=== PATIENT | male | born 1980 | race Caucasian/White ===

== ENCOUNTER 2017-10-31 16:45 | Emergency (ER) | payer BC ==
[2017-10-31 16:57] VITALS: BP 171/110
[2017-10-31] MEDS ORDERED: methylPREDNISolone Sodium Succinate 125 MG/2 ML SDV IM ONE (17:33)
[2017-10-31] MEDS ORDERED: Acetaminophen/oxyCODONE 325-5 MG Tab PO ONE (17:33)
[2017-10-31] MEDS ORDERED: Ketorolac 60 MG/2 ML SDV IM ONE (17:33)
[2017-10-31] MEDS ORDERED: Cyclobenzaprine 10 MG Tab PO ONE (17:34)
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
== END 2017-10-31 18:55 | disposition home or self-care (01) ==
LOC: JD.ED 16:45
DX: M54.42 Lumbago with sciatica, left side (principal); F17.210 Nicotine dependence, cigarettes, uncomplicated; I10 Essential (primary) hypertension; F41.9 Anxiety disorder, unspecified; Z79.899 Other long term (current) drug therapy
CPT/HCPCS: 96372; 99283; A9270; J1885; J2930; 99282

== ENCOUNTER 2018-07-14 19:50 | Emergency (ER) | payer BC ==
[2018-07-14 20:18] VITALS: BP 158/104
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
--- NOTE | 2018-07-17 08:46 | CR ---
Lumbar spine: AP, lateral and cone-down lateral views centered to the lumbosacral junction were obtained. Comparison: No previous study. Mild disc space narrowing is seen posteriorly at L5-S1. Minimal anterior wedging is noted at T12 and T11. Mild scattered endplate osteophytes are seen. Pedicles as well as transverse and spinous processes are intact. Sacroiliac joints are within normal limits. Impression: 1. Mild degenerative change as noted above. 2. Minimal anterior wedging of T11 and T12. This may be developmental although MRI would be helpful to exclude acute compression deformity if the patient has correlating symptoms. Diagnostic code #3
== END 2018-07-14 21:40 | disposition home or self-care (01) ==
LOC: JD.ED 19:50
DX: S39.012A Strain of muscle, fascia and tendon of lower back, initial encounter (principal); I10 Essential (primary) hypertension; F17.210 Nicotine dependence, cigarettes, uncomplicated; Z79.899 Other long term (current) drug therapy; V57.5XXA Driver of pick-up truck or van injured in collision with fixed or stationary object in traffic accident, initial encounter
CPT/HCPCS: 72100; 72100-26; 99284

== ENCOUNTER 2018-11-19 03:41 | Emergency (ER) | payer BC ==
[2018-11-19 03:51] VITALS: BP 202/112
[2018-11-19] MEDS ORDERED: cefTRIAXone 1 GM, Lidocaine 1% 2.1 ML IM SCH ×2 (04:15)
--- NOTE | 2018-11-19 04:20 | EDM.PDOC ---
ED HPI GENERAL MEDICAL PROBLEM - General Chief Complaint: ENT Problem Stated Complaint: ABCESSED TOOTH Time Seen by Provider: 11/19/18 04:02 Source of Information: Reports: Patient History Limitations: Reports: No Limitations - History of Present Illness INITIAL COMMENTS - FREE TEXT/NARRATIVE: This is a 38-year-old male. He has a history of very bad teeth. He seen his dentist multiple times for repair of the teeth but they continued to disintegrate. Over the last couple days he's been having on and off irritation of tooth #15 in the left upper jaw and tonight he woke up feeling like he was hurting he brushed his teeth and swish some whiskey and the tooth began to bleed and he feels like his face is more swollen. He comes to the ER for evaluation. He receives pain management by a [facility] part of [facility] pain management. He states he's been to see his dentist this week for repair or removal of the tooth. Left Tooth/Teeth Pain Score (Numeric/FACES): 10 - Related Data Allergies Allergy/AdvReac Type Severity Reaction Status Date / Time No Known Allergies Allergy Verified 11/19/18 03:51 Home Meds: Home Meds DULoxetine [Cymbalta] 60 mg PO DAILY 05/05/18 [History] Gabapentin [Neurontin] 300 - 900 mg PO DAILY 11/19/18 [History] Penicillin V Potassium 500 mg PO Q8HR 30 Days #30 tab 11/19/18 [Rx] oxyCODONE ER [OxyCONTIN] 10 mg PO DAILY PRN 11/19/18 [History] tiZANidine HCl [Tizanidine HCl] 10 mg PO DAILY 11/19/18 [History] Past Medical History Cardiovascular History: Reports: Hypertension Other Cardiovascular History: not on medication Musculoskeletal History: Reports: Back Pain, Chronic, Fracture Psychiatric History: Reports: Anxiety Social & Family History - Family History Family Medical History: Noncontributory - Tobacco Use Smoking Status *Q: Current Every Day Smoker Years of Tobacco use: 20 Packs/Tins Daily: 1 - Caffeine Use Caffeine Use: Reports: Soda - Recreational Drug Use Recreational Drug Use: No ED ROS ENT - Review of Systems Review Of Systems: See Below Constitutional: Denies: Fever, Chills HEENT: Reports: Other (As per history of present illness) Respiratory: Reports: No Symptoms Cardiovascular: Reports: No Symptoms Endocrine: Reports: No Symptoms GI/Abdominal: Reports: No Symptoms Musculoskeletal: Reports: Back Pain Skin: Reports: No Symptoms Psychiatric: Reports: No Symptoms Hematologic/Lymphatic: Reports: No Symptoms ED EXAM, ENT - Physical Exam Exam: See Below Exam Limited By: No Limitations General Appearance: Alert, WD/WN, No Apparent Distress Eye Exam: Bilateral Eye: Normal Inspection Ears: Normal External Exam Nose: Normal Inspection Mouth/Throat: Normal Lips, Normal Oropharynx, Other (Teeth are in poor repair. In the left upper jaw tooth #15 there is a amalgam but only part of the tooth that looks like it is disintegrated, I do not see any active bleeding or drainage at this time) Head: Normocephalic Neck: Supple Respiratory/Chest: No Respiratory Distress Extremities: Normal Inspection, Normal Range of Motion Neurological: Alert, Oriented Psychiatric: Normal Affect, Normal Mood Skin: Warm, Dry Course - Vital Signs Last Recorded V/S: Last Vital Signs Temp 96.7 F 11/19/18 03:49 Pulse 89 11/19/18 03:49 Resp 16 11/19/18 03:49 BP 202/112 H 11/19/18 03:49 Pulse Ox 98 11/19/18 03:49 - Orders/Labs/Meds Orders: Active Orders 24 hr Category Date Time Status cefTRIAXone [Rocephin] 1 gm Med 11/19/18 04:15 Active Lidocaine 1% [Xylocaine 1%] 2.1 ml IM Q24H Medication Orders Ceftriaxone Sodium 1 gm/ (Lidocaine HCl 2.1 ml) 0 gm IM Q24H [facility] Meds: Medications Generic Name Dose Route Start Last Admin Trade Name Haja PRN Reason Stop Dose Admin Ceftriaxone Sodium 1 gm/ 0 gm 11/19/18 04:15 Lidocaine HCl 2.1 ml IM Q24H [facility] Departure - Departure Time of Disposition: 04:17 Disposition: Home, Self-Care 01 Condition: Good Clinical Impression: Dental infection, Dental caries, Pain, dental - Discharge Information *PRESCRIPTION DRUG MONITORING PROGRAM REVIEWED*: Not Applicable *COPY OF PRESCRIPTION DRUG MONITORING REPORT IN PATIENT [place]: Not Applicable Prescriptions: Penicillin V Potassium 500 mg PO Q8HR 30 Days #30 tab Instructions: Dental Abscess Referrals: Dixon Whitmore Jr, MD [Primary Care Provider] - Additional Instructions: When the pharmacy opens up tomorrow and get the antibiotics and start taking them faithfully, call your dentist to get an appointment for repair or extraction of the tooth, continue with your oxycodone at home from pain management, you may use some Tylenol or ibuprofen as needed for pain and soreness, return to the ER if needed - My Orders Last 24 Hours: My Active Orders 11/19/18 04:15 cefTRIAXone [Rocephin] 1 gm Lidocaine 1% [Xylocaine 1%] 2.1 ml IM Q24H - Assessment/Plan Last 24 Hours: My Active Orders 11/19/18 04:15 cefTRIAXone [Rocephin] 1 gm Lidocaine 1% [Xylocaine 1%] 2.1 ml IM Q24H
== END 2018-11-19 04:29 | disposition home or self-care (01) ==
LOC: JD.ED 03:41
DX: K02.9 Dental caries, unspecified (principal); I10 Essential (primary) hypertension; F41.9 Anxiety disorder, unspecified; F17.210 Nicotine dependence, cigarettes, uncomplicated; Z79.899 Other long term (current) drug therapy
CPT/HCPCS: 96372; 99282; J0696; J2001; 99283

== ENCOUNTER 2020-07-03 18:55 | Emergency (ER) | payer BC, MEDICAID ==
[2020-07-03] MEDS ORDERED: Sodium Chloride 0.9% 1,000 ML IV ONE (19:15)
[2020-07-03] MEDS ORDERED: Sodium Chloride 0.9% 10 ML Syringe FLUSH PRN ×2 (19:15→20:23)
[2020-07-03] MEDS ORDERED: Ketorolac 30 MG/ML SDV IVPUSH ONE (19:19)
--- NOTE | 2020-07-03 19:37 | EDM.PDOC ---
ED HPI GENERAL MEDICAL PROBLEM - General Chief Complaint: Fever Stated Complaint: [facility] Time Seen by Provider: 07/03/20 19:20 Source of Information: Reports: Patient History Limitations: Reports: No Limitations - History of Present Illness INITIAL COMMENTS - FREE TEXT/NARRATIVE: Patient is a 40-year-old male presenting to the emergency department via [facility] with complaints of fever and cough. Ambulance crew said they were initially called out for a stroke, however patient's neurologic exam is normal, however he is intermittently confused. EMS reports a temperature of 105 upon their arrival. Temperature in triage which is 103.3. Patient does answer questions somewhat appropriately, however answers them in a roundabout fashion. He denies any chronic heart or lung conditions. States he has some right lower quadrant abdominal cramping occasionally but is not overly painful. States has been feeling ill for about 2 days and describes fever, but denies cough. He denies any nausea or vomiting. Patient states that his father called the ambulance. On triage, patient's temperature was 103.3 temporal, pulse 116, respiratory rate 20, blood pressure 149/87, with a pulse ox of 97% on room air. Abdominal Pain Score (Numeric/FACES): 4 - Related Data Allergies Allergy/AdvReac Type Severity Reaction Status Date / Time No Known Allergies Allergy Verified 07/03/20 19:15 Home Meds: Home Meds DULoxetine [Cymbalta] 60 mg PO DAILY 05/05/18 [History] Gabapentin [Neurontin] 300 - 900 mg PO DAILY 11/19/18 [History] Penicillin V Potassium 500 mg PO Q8HR 30 Days #30 tab 11/19/18 [Rx] oxyCODONE ER [OxyCONTIN] 10 mg PO DAILY PRN 11/19/18 [History] tiZANidine HCl [Tizanidine HCl] 10 mg PO DAILY 11/19/18 [History] Doxycycline [Vibra-Tabs] 100 mg PO Q12HR #20 tab 07/04/20 [Rx] Past Medical History Cardiovascular History: Reports: Hypertension Other Cardiovascular History: not on medication Musculoskeletal History: Reports: Back Pain, Chronic, Fracture Psychiatric History: Reports: Anxiety Social & Family History - Family History Family Medical History: Noncontributory - Caffeine Use Caffeine Use: Reports: Soda ED ROS GENERAL - Review of Systems Review Of Systems: See Below Constitutional: Reports: Fever, Chills, Weakness HEENT: Reports: No Symptoms Respiratory: Reports: Shortness of Breath, Cough Cardiovascular: Reports: No Symptoms. Denies: Chest Pain, Syncope Endocrine: Reports: No Symptoms GI/Abdominal: Reports: Abdominal Pain (Right lower abdomen). Denies: Nausea, Vomiting : Reports: No Symptoms. Denies: Flank Pain Musculoskeletal: Reports: No Symptoms Skin: Reports: No Symptoms Neurological: Reports: Confusion (Intermittent). Denies: Headache Psychiatric: Reports: Confusion (Intermittent) Hematologic/Lymphatic: Reports: No Symptoms Immunologic: Reports: No Symptoms ED EXAM, SEPSIS - Physical Exam Exam: See Below General Appearance: Alert, Lethargic Eye Exam: Bilateral Eye: PERRL, Other ([place] bilaterally) Head: Atraumatic, Normocephalic Respiratory/Chest: No Respiratory Distress, Lungs Clear, Normal Breath Sounds, No Accessory Muscle Use, Chest Non-Tender Cardiovascular: Normal Peripheral Pulses, Regular Rate, Rhythm, No Edema, No Gallop, No JVD, No Murmur, No Rub GI/Abdominal Exam: Normal Bowel Sounds, Soft, No Organomegaly, No Distention, No Abnormal Bruit, No Mass, Pelvis Stable, Tender (Right lower and right lateral quadrant tenderness.). No: Guarding, Rigid, Rebound Extremities: Normal Inspection, Normal Range of Motion, Non-Tender, No Pedal Edema, Normal Capillary Refill Neurological: Alert, Oriented, No Motor/Sensory Deficits, Other (Answers questions in a roundabout matter. Takes him a while to think of the answer to the questions. He is oriented to person place and date.) Psychiatric: Normal Affect, Normal Mood Skin: Warm, Dry, Intact, Normal Color, No Rash EKG INTERPRETATION EKG Date: 07/04/20 Time: 21:10 Rhythm: NSR Rate (Beats/Min): 100 [place]: Normal P-Wave: Present QRS: Normal ST-T: Normal QT: Prolonged (Mildly) EKG Interpretation Comments: Sinus tachycardia at 100 bpm With V1 and V2 old anterior septal MO Early R wave transition consider septal hypertrophy Consider left atrial hypertrophy QTC mildly prolonged EKG interpreted by Dr. Saray RENTERIA. Course - Vital Signs Last Recorded V/S: Last Vital Signs Temp 100.5 F 07/03/20 23:56 Pulse 89 07/04/20 00:40 Resp 16 07/04/20 00:40 BP 126/79 07/04/20 00:40 Pulse Ox 100 07/04/20 00:40 - Orders/Labs/Meds Orders: Active Orders 24 hr Category Date Time Status Cardiac Monitoring [RC] CONTINUOUS Care 07/03/20 19:17 Active EKG Documentation Completion [RC] ASDIRECTED Care 07/03/20 19:17 Active Venous Doppler Lwr Ext Bi [US] Stat Exams 07/03/20 22:27 Ordered CULTURE BLOOD [BC] Stat Lab 07/03/20 19:45 Received CULTURE BLOOD [BC] Stat Lab 07/03/20 19:55 Received DRUG SCREEN, URINE [URCHEM] Stat Lab 07/03/20 19:22 Ordered UA W/JAIMEE RFLX IF INDICATED [URIN] Stat Lab 07/03/20 19:15 Ordered Sodium Chloride 0.9% [Normal Saline] 1,000 ml Med 07/03/20 21:52 Active IV NOW Sodium Chloride 0.9% [Saline Flush] Med 07/03/20 19:15 Active 10 ml FLUSH ASDIRECTED PRN Sodium Chloride 0.9% [Saline Flush] Med 07/03/20 20:23 Active 10 ml FLUSH ONETIME PRN cefTRIAXone [Rocephin] 2 gm Med 07/03/20 21:45 Active Sodium Chloride 0.9% [Normal Saline] 100 ml IV Q24H Blood Culture x2 Reflex Set [OM.PC] Stat Oth 07/03/20 19:15 Ordered Pulse Oximetry Continuous Monitoring [OM.PC] Routine Oth 07/03/20 19:15 Active Saline Lock Insert [OM.PC] Stat Oth 07/03/20 19:15 Ordered EKG 12 Lead [EK] Stat Ther 07/03/20 19:15 Ordered Medication Orders Ceftriaxone Sodium 2 gm/ (Sodium Chloride) 100 mls @ 200 mls/hr IV Q24H DAT Last Admin: 07/03/20 22:05 Dose: 200 mls/hr Documented by: TALISHAIMAIdania Sodium Chloride (Normal Saline) 1,000 mls @ 150 mls/hr IV NOW STA Stop: 07/04/20 04:31 Last Admin: 07/03/20 22:04 Dose: 150 mls/hr Documented by: TALISHAIMAR Sodium Chloride (Saline Flush) 10 ml FLUSH ASDIRECTED PRN PRN Reason: Keep Vein Open Last Admin: 07/03/20 19:31 Dose: 10 ml Documented by: CIPRIANO Sodium Chloride (Saline Flush) 10 ml FLUSH ONETIME PRN PRN Reason: Keep Vein Open Last Admin: 07/03/20 20:42 Dose: 10 ml Documented by: BERE Labs: Laboratory Tests 07/03/20 07/03/20 07/03/20 Range/Units 19:45 19:45 19:45 WBC 19.64 H (4.23-9.07) K/mm3 RBC 5.21 (4.63-6.08) M/mm3 Hgb 15.6 (13.7-17.5) gm/dl Hct 45.1 (40.1-51.0) % MCV 86.6 (79.0-92.2) fl MCH 29.9 (25.7-32.2) pg MCHC 34.6 (32.2-35.5) g/dl RDW Std Deviation 39.6 (35.1-43.9) fL Plt Count 136 L (163-337) K/mm3 MPV 10.8 (9.4-12.3) fl Neutrophils % (Manual) 87 H (40-60) % Band Neutrophils % 4 (0-10) % Lymphocytes % (Manual) 4 L (20-40) % Atypical Lymphs % 0 % Monocytes % (Manual) 5 (2-10) % Eosinophils % (Manual) 0 L (0.8-7.0) % Basophils % (Manual) 0 L (0.2-1.2) Platelet Estimate Decreased Plt Morphology Comment See note RBC Morph Comment Normal PT (9.7-11.7) SECONDS INR D-Dimer, Quantitative (0.19-0.50) mg/L Sodium 132 L (136-145) mEq/L Potassium 3.0 L (3.5-5.1) mEq/L Chloride 96 L (98-107) mEq/L Carbon Dioxide 24 (21-32) mEq/L Anion Gap 15.0 (5-15) BUN 16 (7-18) mg/dL Creatinine 1.5 H (0.7-1.3) mg/dL Est Cr Clr Drug Dosing 69.03 mL/min Estimated GFR (MDRD) 52 (>60) mL/min BUN/Creatinine Ratio 10.7 L (14-18) Glucose 151 H (74-106) mg/dL Lactic Acid 1.0 (0.4-2.0) mmol/L Calcium 8.4 L (8.5-10.1) mg/dL Ferritin (26-388) ng/ml Total Bilirubin 1.0 (0.2-1.0) mg/dL AST 20 (15-37) U/L ALT 26 (16-63) U/L Alkaline Phosphatase 62 (46-116) U/L Lactate Dehydrogenase (85-227) U/L Troponin I < 0.017 (0.00-0.056) ng/mL C-Reactive Protein 34.0 H* (<1.0) mg/dL Total Protein 7.3 (6.4-8.2) g/dl Albumin 3.3 L (3.4-5.0) g/dl Globulin 4.0 gm/dL Albumin/Globulin Ratio 0.8 L (1-2) Lipase 37 L (73-393) U/L SARS-CoV-2 RNA (CRYS) (NEGATIVE) 07/03/20 07/03/20 07/03/20 Range/Units 19:45 19:45 19:45 WBC (4.23-9.07) K/mm3 RBC (4.63-6.08) M/mm3 Hgb (13.7-17.5) gm/dl Hct (40.1-51.0) % MCV (79.0-92.2) fl MCH (25.7-32.2) pg MCHC (32.2-35.5) g/dl RDW Std Deviation (35.1-43.9) fL Plt Count (163-337) K/mm3 MPV (9.4-12.3) fl Neutrophils % (Manual) (40-60) % Band Neutrophils % (0-10) % Lymphocytes % (Manual) (20-40) % Atypical Lymphs % % Monocytes % (Manual) (2-10) % Eosinophils % (Manual) (0.8-7.0) % Basophils % (Manual) (0.2-1.2) Platelet Estimate Plt Morphology Comment RBC Morph Comment PT 12.4 H (9.7-11.7) SECONDS INR 1.16 D-Dimer, Quantitative 2.16 H (0.19-0.50) mg/L Sodium (136-145) mEq/L Potassium (3.5-5.1) mEq/L Chloride (98-107) mEq/L Carbon Dioxide (21-32) mEq/L Anion Gap (5-15) BUN (7-18) mg/dL Creatinine (0.7-1.3) mg/dL Est Cr Clr Drug Dosing mL/min Estimated GFR (MDRD) (>60) mL/min BUN/Creatinine Ratio (14-18) Glucose (74-106) mg/dL Lactic Acid (0.4-2.0) mmol/L Calcium (8.5-10.1) mg/dL Ferritin 891 H (26-388) ng/ml Total Bilirubin (0.2-1.0) mg/dL AST (15-37) U/L ALT (16-63) U/L Alkaline Phosphatase (46-116) U/L Lactate Dehydrogenase 216 (85-227) U/L Troponin I (0.00-0.056) ng/mL C-Reactive Protein (<1.0) mg/dL Total Protein (6.4-8.2) g/dl Albumin (3.4-5.0) g/dl Globulin gm/dL Albumin/Globulin Ratio (1-2) Lipase (73-393) U/L SARS-CoV-2 RNA (CRYS) (NEGATIVE) 07/03/20 Range/Units 19:58 WBC (4.23-9.07) K/mm3 RBC (4.63-6.08) M/mm3 Hgb (13.7-17.5) gm/dl Hct (40.1-51.0) % MCV (79.0-92.2) fl MCH (25.7-32.2) pg MCHC (32.2-35.5) g/dl RDW Std Deviation (35.1-43.9) fL Plt Count (163-337) K/mm3 MPV (9.4-12.3) fl Neutrophils % (Manual) (40-60) % Band Neutrophils % (0-10) % Lymphocytes % (Manual) (20-40) % Atypical Lymphs % % Monocytes % (Manual) (2-10) % Eosinophils % (Manual) (0.8-7.0) % Basophils % (Manual) (0.2-1.2) Platelet Estimate Plt Morphology Comment RBC Morph Comment PT (9.7-11.7) SECONDS INR D-Dimer, Quantitative (0.19-0.50) mg/L Sodium (136-145) mEq/L Potassium (3.5-5.1) mEq/L Chloride (98-107) mEq/L Carbon Dioxide (21-32) mEq/L Anion Gap (5-15) BUN (7-18) mg/dL Creatinine (0.7-1.3) mg/dL Est Cr Clr Drug Dosing mL/min Estimated GFR (MDRD) (>60) mL/min BUN/Creatinine Ratio (14-18) Glucose (74-106) mg/dL Lactic Acid (0.4-2.0) mmol/L Calcium (8.5-10.1) mg/dL Ferritin (26-388) ng/ml Total Bilirubin (0.2-1.0) mg/dL AST (15-37) U/L ALT (16-63) U/L Alkaline Phosphatase (46-116) U/L Lactate Dehydrogenase (85-227) U/L Troponin I (0.00-0.056) ng/mL C-Reactive Protein (<1.0) mg/dL Total Protein (6.4-8.2) g/dl Albumin (3.4-5.0) g/dl Globulin gm/dL Albumin/Globulin Ratio (1-2) Lipase (73-393) U/L SARS-CoV-2 RNA (CRYS) Negative (NEGATIVE) Meds: Medications Generic Name Dose Route Start Last Admin Trade Name Freq PRN Reason Stop Dose Admin Ceftriaxone Sodium 2 gm/ 100 mls @ 200 mls/hr 07/03/20 21:45 07/03/20 22:05 Sodium Chloride IV 200 mls/hr Q24H DAT Administration Sodium Chloride 1,000 mls @ 150 mls/hr 07/03/20 21:52 07/03/20 22:04 Normal Saline IV 07/04/20 04:31 150 mls/hr NOW STA Administration Sodium Chloride 10 ml 07/03/20 19:15 07/03/20 19:31 Saline Flush FLUSH 10 ml ASDIRECTED PRN Administration Keep Vein Open Sodium Chloride 10 ml 07/03/20 20:23 07/03/20 20:42 Saline Flush FLUSH 10 ml ONETIME PRN Administration Keep Vein Open Discontinued Medications Generic Name Dose Route Start Last Admin Trade Name Haja PRN Reason Stop Dose Admin Acetaminophen 975 mg 07/03/20 21:10 07/03/20 21:24 Tylenol PO 07/03/20 21:11 975 mg NOW ONE Administration Doxycycline Hyclate 200 mg 07/03/20 23:54 07/04/20 00:46 Vibramycin PO 07/03/20 23:55 200 mg ONETIME ONE Administration Sodium Chloride 1,000 mls @ 999 mls/hr 07/03/20 19:15 07/03/20 19:30 Normal Saline IV 07/03/20 20:15 999 mls/hr BOLUS ONE Administration Sodium Chloride 100 mls @ 4 mls/sec 07/03/20 22:03 07/03/20 22:03 Normal Saline IV 07/03/20 22:04 4 mls/sec ONETIME ONE Administration Iopamidol 100 ml 07/03/20 20:23 07/03/20 20:41 Isovue-300 (61%) IVPUSH 07/03/20 20:24 100 ml ONETIME ONE Administration Iopamidol 100 ml 07/03/20 22:03 07/03/20 22:03 Isovue-370 (76%) IVPUSH 07/03/20 22:04 100 ml ONETIME ONE Administration Ketorolac Tromethamine 30 mg 07/03/20 19:19 07/03/20 19:30 Toradol IVPUSH 07/03/20 19:20 30 mg ONETIME ONE Administration Potassium Chloride 40 meq 07/03/20 21:52 07/03/20 22:05 Klor-Con M20 PO 07/03/20 21:53 40 meq ONETIME ONE Administration - Re-Assessments/Exams Free Text/Narrative Re-Assessment/Exam: 07/03/20 21:51 Hematology was significant for WBC elevated at 19.64,Next, sodium 132, potassium 3.0, chloride 96, creatinine 1.5, ferritin 891, troponin was negative, CRP elevated at 34, patient is COVID negative. Hest x-ray shows a large area of consolidation within the right upper lung. This could represent mass as well as consolidating area of pneumonia. CT of the chest abdomen pelvis with IV co ntrast shows a large area of consolidation showing air bronchograms within the right upper chest correlating to x-ray findings. As mentioned above, this is most likely infectious rather than a mass given the air bronchograms. Small area of consolidation within the right lung base. No other abnormalities are seen on the CT study of the chest. CT scan of the head shows an equivocal hyperdense right middle cerebral artery. This most likely artifact although CT angiogram of the brain could be considered to make sure there is flow within the right middle cerebral artery. Also shows mild thickening. Patient's temperature came down to 99.9 after the fluids and Toradol. He is much more alert and able to answer questions without difficulty. His neurologic exam is negative at this point. He has equal grasp bilateral. Denies headache. Discussed the elevated d-dimer with him. He states he does have chronically swollen and painful bilateral lower extremities due to his chronic back pain. We will do a CT angiogram of his chest to rule out PE. If this is found to be negative, we will ultrasound his bilateral lower extremities to look for possibility of DVT. I have ordered Rocephin 2 g IV. I will also give him 40 mEq of oral potassium and 975 mg of Tylenol. 07/03/20 23:04 CT angiogram of the chest was negative for acute PEs. I have ordered a venous Doppler ultrasound of his bilateral lower extremities to look for the presence of blood clots. Patient is feeling much better. He is awake completely alert and oriented and no longer lethargic. 07/04/20 00:19 Venous Doppler ultrasound of the bilateral lower extremities was negative for any DVTs. Patient is ready to go home. He does still remain mildly febrile. Nursing staff got a temp or an oral temperature of 100.6. I did recheck a temporal temperature approximately 45 minutes later and it was 97.7, however patient was slightly diaphoretic. Oxygen saturations have maintained 96 to 98% on room air. He is no longer tachycardic. We will start him on doxycycline 200 mg will be given oral tonight. We will send a prescription for doxycycline 100 mg twice daily for 10 days. I did discuss strict return precautions including shortness of breath, confusion, uncontrollable fever, or any other symptoms of concern. He is in agreement with this plan. Discharge instructions as documented. Departure - Departure Time of Disposition: 00:21 Disposition: Home, Self-Care 01 Condition: Good Clinical Impression: Pneumonia Qualifiers: Pneumonia type: due to unspecified organism Laterality: right Lung location: unspecified part of lung Qualified Code(s): J18.9 - Pneumonia, unspecified organism - Discharge Information *PRESCRIPTION DRUG MONITORING PROGRAM REVIEWED*: No *COPY OF PRESCRIPTION DRUG MONITORING REPORT IN PATIENT [place]: No Prescriptions: Doxycycline [Vibra-Tabs] 100 mg PO Q12HR #20 tab Instructions: Community-Acquired Pneumonia, Adult Referrals: PCP,None [Primary Care Provider] - Forms: ED Department Discharge Additional Instructions: You were seen in the emergency department this evening for fever and some mild confusion. On arrival to ER, your temperature was quite elevated 103.3. Complete work-up included blood work, chest x-ray, head CT, a CT scan of your chest, abdomen, pelvis, a CT angiogram of your chest, as well as venous Doppler ultrasound of both legs were completed. Results of your blood work are consistent with a right sided bacterial pneumonia. While in the ER, you received Toradol which is an NSAID similar to ibuprofen for your fever, as well as Tylenol. He also received a dose of IV antibiotics as well as your first dose of doxycycline which is an antibiotic. A prescription for doxycycline has been sent to clinic pharmacy. Take this medication as prescribed. Recommend that yo use Tylenol and ibuprofen alternating over the next 1 to 2 days to keep your fever under control. Recommend ibuprofen 600 mg by mouth every 6 hours, with your next dose to be given at about 130am. You may use Tylenol 650 mg every 4 hours in between doses of ibuprofen. You should see improvement in your fever within the next 24 to 48 hours of the antibiotics take effect. If you should experience any worsening symptoms such as shortness of breath, uncontrolled fever, confusion, or any other symptoms of concern, please not hesitate to return to the emergency department. Sepsis Event Note (ED) - Evaluation Sepsis Screening Result: Possible Severe Sepsis Risk - Focused Exam Vital Signs: Vital Signs Temp Temp Pulse Resp BP Pulse Ox 07/04/20 00:40 89 16 126/79 100 07/03/20 23:56 100.5 F 07/03/20 21:24 100.6 F 07/03/20 19:02 103.3 F H 116 H 20 149/87 H 97 - My Orders Last 24 Hours: My Active Orders 07/03/20 19:15 UA W/JAIMEE RFLX IF INDICATED [URIN] Stat Sodium Chloride 0.9% [Saline Flush] 10 ml FLUSH ASDIRECTED PRN Blood Culture x2 Reflex Set [OM.PC] Stat Pulse Oximetry Continuous Monitoring [OM.PC] Routine Saline Lock Insert [OM.PC] Stat EKG 12 Lead [EK] Stat 07/03/20 19:17 Cardiac Monitoring [RC] CONTINUOUS EKG Documentation Completion [RC] ASDIRECTED 07/03/20 19:22 DRUG SCREEN, URINE [URCHEM] Stat 07/03/20 19:45 CULTURE BLOOD [BC] Stat 07/03/20 19:55 CULTURE BLOOD [BC] Stat 07/03/20 20:23 Sodium Chloride 0.9% [Saline Flush] 10 ml FLUSH ONETIME PRN 07/03/20 21:45 cefTRIAXone [Rocephin] 2 gm Sodium Chloride 0.9% [Normal Saline] 100 ml IV Q24H 07/03/20 21:52 Sodium Chloride 0.9% [Normal Saline] 1,000 ml IV NOW 07/03/20 22:27 Venous Doppler Lwr Ext Bi [US] Stat - Assessment/Plan Last 24 Hours: My Active Orders 07/03/20 19:15 UA W/JAIMEE RFLX IF INDICATED [URIN] Stat Sodium Chloride 0.9% [Saline Flush] 10 ml FLUSH ASDIRECTED PRN Blood Culture x2 Reflex Set [OM.PC] Stat Pulse Oximetry Continuous Monitoring [OM.PC] Routine Saline Lock Insert [OM.PC] Stat EKG 12 Lead [EK] Stat 07/03/20 19:17 Cardiac Monitoring [RC] CONTINUOUS EKG Documentation Completion [RC] ASDIRECTED 07/03/20 19:22 DRUG SCREEN, URINE [URCHEM] Stat 07/03/20 19:45 CULTURE BLOOD [BC] Stat 07/03/20 19:55 CULTURE BLOOD [BC] Stat 07/03/20 20:23 Sodium Chloride 0.9% [Saline Flush] 10 ml FLUSH ONETIME PRN 07/03/20 21:45 cefTRIAXone [Rocephin] 2 gm Sodium Chloride 0.9% [Normal Saline] 100 ml IV Q24H 07/03/20 21:52 Sodium Chloride 0.9% [Normal Saline] 1,000 ml IV NOW 07/03/20 22:27 Venous Doppler Lwr Ext Bi [US] Stat
--- NOTE | 2020-07-03 20:16 | CR ---
Chest: Portable view of the chest was obtained. Comparison: No prior chest imaging is available. Large area of consolidation noted within the right upper lung. This could represent mass as well as consolidating area of pneumonia. Heart size and mediastinum are normal. Lungs are clear with no acute parenchymal change. Bony structures are grossly intact. Impression: 1. Consolidation within the right upper chest as noted above. Diagnostic code #5 Study was dictated in MDT
[2020-07-03] MEDS ORDERED: Iopamidol 612 MG/ML 100 ML Bottle IVPUSH ONE (20:23)
--- NOTE | 2020-07-03 20:58 | CT ---
CT chest Technique: Multiple axial sections through the chest were obtained. Intravenous contrast was utilized. Comparison: Prior chest x-ray performed earlier on the same day (7:16 PM). Findings: There is an area of consolidation within the right upper lung abutting the pleural margin. Air bronchograms are seen in this area and this is most likely infectious rather than representing a mass. Additional smaller area of consolidation within the right lung base is seen. Lungs otherwise are clear. Aorta shows no aneurysm. No pericardial fluid is seen. No axillary adenopathy is seen. Bone window settings were reviewed which shows no acute osseous finding. Impression: 1. Large area of consolidation showing air bronchograms within the right upper chest correlating to chest x-ray finding. As mentioned above, this is most likely infectious rather than a mass given the air bronchograms. 2. Smaller area of consolidation within the right lung base. 3. No additional abnormality is appreciated on CT study of the chest. Diagnostic code #5 CT abdomen and pelvis Technique: Multiple axial sections were obtained from above the dome of the diaphragm inferiorly to the pubic symphysis. Intravenous contrast was utilized. No oral contrast has been given. Delayed images were also obtained through the abdomen and pelvis. Reconstructed coronal and sagittal images were obtained. Findings: Liver shows fatty infiltration. Spleen shows no focal abnormality. Adrenal glands show no nodule. Kidneys show symmetric contrast enhancement. Small cortical lesion measuring about 7 mm is noted within the mid left kidney. This is too small to characterize by Hounsfield unit measurements but statistically is most likely due to a small cyst. Pancreas appears within normal limits. Gallbladder contains no calcified gallstones. Aorta shows no aneurysm. No retroperitoneal adenopathy is seen. No pelvic mass or adenopathy is seen. No free fluid or inflammatory change is appreciated. Appendix is seen which is normal in size. Delayed images shows contrast excretion from the kidneys. Delayed images shows a small low-density lesion within the right kidney within the mid to lower pole measuring 7 mm. This is also most likely due to a cyst. Ureters show no dilatation. Contrast is noted within the bladder on delayed images with no contrast extravasation. Bone window settings were reviewed which shows no acute osseous finding. Cystic lesion is noted within the superior acetabulum of the left hip most likely due to benign bone cyst. Impression: 1. Findings believed to be incidental as described above. 2. Nothing acute is seen on CT study of the abdomen and pelvis. Diagnostic code #2 Study was dictated in T
--- NOTE | 2020-07-03 21:04 | CT ---
Head CT Technique: Multiple axial sections through the brain were obtained. Intravenous contrast was not utilized. Comparison: No prior studies available for comparison. Findings: Ventricles along with basal cisterns and sulci over the convexities are within normal limits for the patient's age. No abnormal parenchymal densities are seen. No evidence of intracranial hemorrhage. No midline shift or mass effect is seen. Equivocal hyperdense right middle cerebral artery is seen. This is most likely relating to flow artifact but difficult to completely exclude a middle cerebral artery thrombosis. No additional abnormality is appreciated. No acute calvarial finding is seen. Mucosal thickening is seen within the ethmoid sinuses. Visualized mastoid sinuses are clear. Impression: 1. Equivocal hyperdense right middle cerebral artery. This is most likely artifact although CT angiogram of the brain could be considered to make sure there is flow within this right middle cerebral artery. 2. Mild mucosal thickening within ethmoid sinuses which is most likely chronic. 3. No additional abnormality is appreciated on noncontrast CT study of the brain. Diagnostic code #5 Study was dictated in MDT
[2020-07-03] MEDS ORDERED: Acetaminophen 325 MG Tab PO ONE (21:10)
[2020-07-03] MEDS ORDERED: cefTRIAXone 2 GM in Sodium Chloride 0.9% 100 ML IV SCH (21:45)
[2020-07-03] MEDS ORDERED: Sodium Chloride 0.9% 1,000 ML IV STA (21:52)
[2020-07-03] MEDS ORDERED: Potassium Chloride 20 MEQ Tab.ER PO ONE (21:52)
[2020-07-03] MEDS ORDERED: Sodium Chloride 0.9% 100 ML IV ONE (22:03)
[2020-07-03] MEDS ORDERED: Iopamidol 755 Mg/ML 100 ML Bottle IVPUSH ONE (22:03)
--- NOTE | 2020-07-03 22:25 | CT ---
CT chest Technique: Multiple axial sections through the chest were obtained. Intravenous contrast was utilized. Study has been performed as a pulmonary aneurysm protocol. Findings: Pulmonary arteries are not optimally opacified. No discrete filling defects within the main or segmental branches are seen. Smaller subsegmental pulmonary emboli could be missed. Other findings are seen which were described on recent chest CT report. Impression: 1. Less than optimal pulmonary artery opacification. Nothing is seen to indicate pulmonary embolism within the main or segmental branches. Smaller subsegmental pulmonary emboli could be missed. 2. Other findings again noted which were described on prior chest CT. Diagnostic code #3 Study was dictated in MDT
[2020-07-03] MEDS ORDERED: Doxycycline 100 MG Cap PO ONE (23:54)
[2020-07-04 00:43] VITALS: BP 126/79; PULSE 89
--- NOTE | 2020-07-04 07:17 | US ---
Bilateral lower extremity venous ultrasound: Duplex and color Doppler evaluation was obtained of the right and left common femoral, proximal greater saphenous, superficial femoral, popliteal, posterior tibial and peroneal veins. Findings: Normal phasic flow, augmentation and compression is seen. Impression: 1. No evidence of deep venous thrombosis within the right or left lower extremities. Diagnostic code #1 Agree with preliminary report issued by [facility] ([facility] preliminary report dictated on 07/04/20, 12:59 AM Central Daylight Time) Study was dictated in MDT
== END 2020-07-04 00:50 | disposition home or self-care (01) ==
LOC: JD.ED 18:55
DX: J18.9 Pneumonia, unspecified organism (principal); R00.0 Tachycardia, unspecified; R10.813 Right lower quadrant abdominal tenderness; I10 Essential (primary) hypertension; F41.9 Anxiety disorder, unspecified; Z20.828 Contact with and (suspected) exposure to other viral communicable diseases; Z79.899 Other long term (current) drug therapy
CPT/HCPCS: 36415; 70450; 71045; 71260; 71275; 74177; 80053; 82728; 83605; 83615; 83690; 84484; 85007; 85027; 85379; 85610; 86140; 87040; 87635; 93005; 93970; 96361; 96365; 96375; 99285; A9270; J0696; J1885; J7030; J7050; Q9967; 93010; 99284; U0002

== ENCOUNTER 2021-04-17 01:37 | Emergency (ER) | payer MEDICAID ==
[2021-04-17 01:50] VITALS: BP 154/95; PULSE 78
--- NOTE | 2021-04-17 02:14 | EDM.PDOC ---
ED HPI GENERAL MEDICAL PROBLEM - General Chief Complaint: Gastrointestinal Problem Stated Complaint: VOMITING/SWEATING/DIARRHEA Time Seen by Provider: 04/17/21 01:48 Source of Information: Reports: Patient History Limitations: Reports: No Limitations - History of Present Illness INITIAL COMMENTS - FREE TEXT/NARRATIVE: Mr. Velazquez is a very pleasant 40-year-old gentleman who now presents the ED stating that he has been experiencing generalized abdominal discomfort on and off since this past 04/12/2021. He then developed more severe sharp/stabbing/burning right upper quadrant and epigastric pain around 22:30 last night. The pain does not radiate. It has been coming and going, with 3 episodes so far, the most recent lasting about 45 minutes. He has not identified any modifiers such as position or food. He has had associated nausea, vomiting, watery diarrhea, and diaphoresis. No urinary symptoms, no flank pain, and no recent fever. No prior similar symptoms. The patient has not taken any [id number] or home remedies since the onset of his symptoms on Tuesday. His last oral intake was around 20:30 last night. Here in the ED, the patient's initial BP is found to be modestly elevated at 154/95, otherwise, he is hemodynamically stable, afebrile, saturating 98% on room air. He states that at present, he does not have any significant abdominal pain. He appears to be comfortable, in no acute distress. The patient's PCP is Shahnaz Garibay NP. Upper Abdomen Pain Score (Numeric/FACES): 4 - Related Data Allergies Allergy/AdvReac Type Severity Reaction Status Date / Time No Known Allergies Allergy Verified 04/17/21 01:51 Home Meds: Home Meds DULoxetine [Cymbalta] 60 mg PO DAILY 05/05/18 [History] amLODIPine [Norvasc] 10 mg PO DAILY 04/17/21 [History] Past Medical History Cardiovascular History: Reports: Hypertension Musculoskeletal History: Reports: Fracture Psychiatric History: Reports: Anxiety Endocrine/Metabolic History: Reports: Obesity/BMI 30+ - Past Surgical History HEENT Surgical History: Reports: Oral Surgery (dental extractions) Male Surgical History: Reports: Vasectomy Social & Family History - Tobacco Use Tobacco Use Status *Q: Current Every Day Tobacco User Years of Tobacco use: 28 Packs/Tins Daily: 1 Packs/Tins Daily Comment: Down from >3 ppd Tobacco Use Comment: Started smoking 1991 - Caffeine Use Caffeine Use: Reports: Coffee, Energy Drinks, Soda - Alcohol Use Alcohol Use History: Yes Alcohol Use Frequency: Socially - Recreational Drug Use Recreational Drug Use: Yes Drug Use in Last 12 Months: No Recreational Drug Type: Reports: Marijuana/Hashish (last smoked Oct 2018) - Living Situation & Occupation Living situation: Reports: , with Family (Daughter) Occupation: Employed (milk tanker driver) ED ROS GENERAL - Review of Systems Review Of Systems: Comprehensive ROS is negative, except as noted in HPI. Musculoskeletal: Reports: Back Pain (chronic) ED EXAM, GI/ABD - Physical Exam Exam: See Below Exam Limited By: No Limitations General Appearance: Alert, WD/WN, No Apparent Distress Eyes: Bilateral: Normal Appearance, EOMI Ears: Normal External Exam, Hearing Grossly Normal Nose: Normal Inspection Throat/Mouth: Normal Inspection, Normal Lips, Normal Voice, No Airway Compromise Head: Atraumatic, Normocephalic Neck: Normal Inspection, Full Range of Motion Respiratory/Chest: No Respiratory Distress, Lungs Clear, Normal Breath Sounds, No Accessory Muscle Use Cardiovascular: Normal Peripheral Pulses, Regular Rate, Rhythm, No Gallop, No JVD, No Murmur, No Rub GI/Abdominal Exam: Normal Bowel Sounds, Soft, No Organomegaly, No Distention, No Abnormal Bruit, No Mass, Tender (To the right upper quadrant, with some tenderness to the epigastrium. Nontender elsewhere. No true Palacios's sign.) Back Exam: Normal Inspection, Full Range of Motion. No: CVA Tenderness (L), CVA Tenderness (R) Extremities: Normal Inspection, Normal Range of Motion, Normal Capillary Refill Neurological: Alert, Oriented, Normal Cognition, No Motor/Sensory Deficits Psychiatric: Normal Affect Skin Exam: Warm, Dry, Intact, Normal Color, No Rash Course - Vital Signs Last Recorded V/S: Last Vital Signs Temp 35.5 C L 04/17/21 01:46 Pulse 78 04/17/21 01:46 Resp 20 04/17/21 01:46 BP 154/95 H 04/17/21 01:46 Pulse Ox 98 04/17/21 01:46 - Orders/Labs/Meds Orders: Active Orders 24 hr Category Date Time Status Abdomen Ltd [US] Stat Exams 04/17/21 02:07 Taken Abdomen Pelvis w Cont [CT] Stat Exams 04/17/21 02:06 Taken Sodium Chloride 0.9% [Normal Saline] 1,000 ml Med 04/17/21 02:15 Active IV ASDIRECTED Medication Orders Sodium Chloride (Normal Saline) 1,000 mls @ 150 mls/hr IV ASDIRECTED DAT Last Admin: 04/17/21 02:21 Dose: 150 mls/hr Documented by: CIPRIANO Labs: Laboratory Tests 04/17/21 04/17/21 04/17/21 Range/Units 02:21 02:21 02:25 WBC 12.59 H (4.23-9.07) K/mm3 RBC 5.50 (4.63-6.08) M/mm3 Hgb 16.8 (13.7-17.5) gm/dl Hct 48.6 (40.1-51.0) % MCV 88.4 (79.0-92.2) fl MCH 30.5 (25.7-32.2) pg MCHC 34.6 (32.2-35.5) g/dl RDW Std Deviation 40.6 (35.1-43.9) fL Plt Count 209 (163-337) K/mm3 MPV 10.5 (9.4-12.3) fl Neutrophils % (Manual) 59 (40-60) % Band Neutrophils % 0 (0-10) % Lymphocytes % (Manual) 32 (20-40) % Atypical Lymphs % 0 % Monocytes % (Manual) 7 (2-10) % Eosinophils % (Manual) 2 (0.8-7.0) % Basophils % (Manual) 0 L (0.2-1.2) Platelet Estimate Adequate Plt Morphology Comment See note RBC Morph Comment Normal Sodium 143 D (136-145) mEq/L Potassium 4.0 (3.5-5.1) mEq/L Chloride 104 (98-107) mEq/L Carbon Dioxide 30 (21-32) mEq/L Anion Gap 13.0 (5-15) BUN 18 (7-18) mg/dL Creatinine 1.5 H (0.7-1.3) mg/dL Est Cr Clr Drug Dosing 69.03 mL/min Estimated GFR (MDRD) 52 (>60) mL/min BUN/Creatinine Ratio 12.0 L (14-18) Glucose 144 H (70-99) mg/dL Calcium 9.1 (8.5-10.1) mg/dL Total Bilirubin 0.5 (0.2-1.0) mg/dL AST 20 (15-37) U/L ALT 52 (16-63) U/L Alkaline Phosphatase 79 (46-116) U/L Total Protein 7.4 (6.4-8.2) g/dl Albumin 3.9 (3.4-5.0) g/dl Globulin 3.5 gm/dL Albumin/Globulin Ratio 1.1 (1-2) Lipase 95 (73-393) U/L SARS-CoV-2 RNA (CRYS) Negative (NEGATIVE) Meds: Medications Generic Name Dose Route Start Last Admin Trade Name Haja PRN Reason Stop Dose Admin Sodium Chloride 1,000 mls @ 150 mls/hr 04/17/21 02:15 04/17/21 02:21 Normal Saline IV 150 mls/hr ASDIRECTED DAT Administration - Re-Assessments/Exams Free Text/Narrative Re-Assessment/Exam: 04/17/21 02:09 As above, the patient has had some abdominal discomfort on and off since Tuesday, but then developed much more severe sharp, stabbing, and burning right upper quadrant and epigastric pain that has been coming and going since around 22:30 last night, with associated nausea, vomiting, watery diarrhea, and diaphoresis. The pain does not radiate anywhere. On physical exam, the patient has reproducible tenderness to his right upper quadrant, with less severe tenderness in his epigastrium, and no tenderness elsewhere. No true Palacios's sign. No CVA tenderness. I suspect that the patient is suffering from cholecystitis. I have ordered a work-up and includes several blood tests, an ultrasound of the right upper quadrant, to be followed by a CT of the abdomen and pelvis with oral and IV contrast, and a swab for the SARS-CoV-2 virus in the event that the patient requires admission. In the meantime, the patient will be given IV fluid. He declined an offer for both pain medication and antinausea medication. 04/17/21 03:20 The patient's CBC is remarkable for mild leukocytosis of 12.59, but with 0% bandemia, and the remainder of his CBC being unremarkable. His CMP is remarkable for a Cr being slightly elevated at 1.5, but with a BUN normal at 18. He has mild hyperglycemia of 144, with remainder of his CMP being unremarkable. His lipase level is within normal limits at 95. His swab for the SARS-CoV-2 virus is negative. 04/17/21 05:25 Ultrasound of the right upper quadrant is read by [facility] as: 1. Mild hepatomegaly and hepatic steatosis/hepatocellular disease. 2. Negative for gallstones or biliary distention or ascites. CT of the abdomen and pelvis with oral and IV contrast is read by [facility] as: 1. Hepatomegaly and hepatic steatosis/hepatocellular disease. 2. No acute abdominal or pelvic findings. 04/17/21 05:35 Test results discussed with the patient. As above, the patient ED work-up is unremarkable and does not explain the cause of his pain. I explained that a negative work-up does not necessarily mean that the patient's pain is not due to biliary colic, indeed, a negative work-up, which rules out other causes of pain, actually increases the likelihood that his pain is due to biliary colic. Further evaluation, including a HIDA scan, is needed. I offered to refer the patient to a surgeon, but he would prefer to follow-up with his PCP, who can then order the HIDA scan. In the meantime, I recommended that the patient eat as low-fat a diet as possible. Departure - Departure Time of Disposition: 05:36 Disposition: Home, Self-Care 01 Condition: Good Clinical Impression: Right upper quadrant abdominal pain of unknown etiology - Discharge Information *PRESCRIPTION DRUG MONITORING PROGRAM REVIEWED*: Not Applicable *COPY OF PRESCRIPTION DRUG MONITORING REPORT IN PATIENT [place]: Not Applicable Referrals: Shahnaz Garibay NP [Primary Care Provider] - Forms: ED Department Discharge Additional Instructions: You were seen in the emergency room after experiencing abdominal discomfort on and off since Tuesday, then more severe right upper and midline abdominal pain last night. Work-up in the ER included several blood tests, a swab for the SARS-CoV-2 virus, an ultrasound of your gallbladder, and a CT of your abdomen and pelvis with oral and IV contrast. Your entire work-up was unremarkable, and does not explain the cause of your pain. Based on your history, physical exam, and ER tests, the most likely explanation for your pain is a sick gallbladder. Since you received iodinated contrast in the ER, you need to stay adequately hydrated at least for the next several days. We recommend that you eat as low-fat a diet as possible. Eating any fat, g rease, or oil, may result in recurrence of your pain. We recommend that you follow-up with your PCP, Shahnaz Garibay NP, to arrange for an outpatient HIDA scan. If any other problems, please do not hesitate to return to the ER. Sepsis Event Note (ED) - Evaluation Sepsis Screening Result: No Definite Risk - Focused Exam Vital Signs: Vital Signs Temp Pulse Resp BP Pulse Ox 04/17/21 01:46 35.5 C L 78 20 154/95 H 98 - My Orders Last 24 Hours: My Active Orders 04/17/21 02:06 Abdomen Pelvis w Cont [CT] Stat 04/17/21 02:07 Abdomen Ltd [US] Stat 04/17/21 02:15 Sodium Chloride 0.9% [Normal Saline] 1,000 ml IV ASDIRECTED - Assessment/Plan Last 24 Hours: My Active Orders 04/17/21 02:06 Abdomen Pelvis w Cont [CT] Stat 04/17/21 02:07 Abdomen Ltd [US] Stat 04/17/21 02:15 Sodium Chloride 0.9% [Normal Saline] 1,000 ml IV ASDIRECTED
[2021-04-17] MEDS ORDERED: Sodium Chloride 0.9% 1,000 ML IV SCH (02:15)
--- NOTE | 2021-04-17 08:25 | US ---
Limited abdominal ultrasound: Multiple real-time images of the upper right abdomen were obtained. Comparison: No prior abdominal ultrasound is available. Findings: Liver is somewhat enlarged and appears echogenic most likely representing fatty infiltration. CHD and CBD are not well seen. Gallbladder contains no definite shadowing gallstones. No gallbladder wall thickening is seen. Pancreas is poorly seen. Main portal vein is poorly seen. The direction of the hepatopedal vein cannot be evaluated. Right kidney shows no hydronephrosis. Right kidney has a length of 12.6 cm. Impression: 1. Limited abdominal ultrasound. 2. Fatty infiltration within the liver with mildly enlarged liver size. 3. No other abnormality is definitely appreciated. Diagnostic code #2 I agree with preliminary report from [facility], finalized on 04/17/21, 5:43 AM CDT, code 1
--- NOTE | 2021-04-17 08:43 | CT ---
CT abdomen and pelvis Technique: Multiple axial sections were obtained from above the dome of the diaphragm inferiorly through the pubic symphysis. Intravenous and oral contrast was utilized. Delayed images were also obtained through the abdomen and pelvis. Reconstructed coronal and sagittal images were obtained. Comparison: Prior right upper quadrant abdominal ultrasound performed earlier on the same day as well as prior CT abdomen and pelvis study of 07/03/20. Findings: Visualized lung bases show nothing acute. Liver is somewhat enlarged. Liver shows fatty infiltration. Gallbladder contains no calcified gallstones. Spleen size is within normal limits. Adrenal glands show no nodule. Pancreas shows no abnormality. Kidneys show symmetric contrast enhancement. Small low density finding is noted within the right kidney measuring about 6 mm which most likely represents a minimal cyst. Delayed images show contrast within the ureters and within the bladder. Abdominal aorta shows mild atherosclerotic calcification which continues into the iliac vessels. No aneurysm is seen. Small retroperitoneal lymph nodes are seen which are believed to be normal. Appendix is seen which is normal. No pelvic mass or adenopathy is seen. No free fluid or inflammatory change is appreciated. Bone window settings were reviewed which show minimal scattered degenerative change within the spine. Mild joint space narrowing is seen within the right hip. Impression: 1. Liver is mildly enlarged and shows evidence of fatty infiltration. 2. Bone findings compatible with mild degenerative change as described above. Small abnormality within the right kidney most likely benign. 3. Nothing acute is otherwise seen on CT study of the abdomen and pelvis. Diagnostic code #2 I agree with preliminary report from [facility], finalized on 04/17/21, 5:49 AM CDT, code 1
== END 2021-04-17 05:41 | disposition home or self-care (01) ==
LOC: JD.ED 01:37
DX: R10.11 Right upper quadrant pain (principal); I10 Essential (primary) hypertension; E66.9 Obesity, unspecified; Z72.0 Tobacco use; Z68.42 Body mass index [BMI] 45.0-49.9, adult; Z20.822 Contact with and (suspected) exposure to COVID-19
CPT/HCPCS: 36415; 74177; 76705; 80053; 83690; 85007; 85027; 87635; 99284; J7030; U0002

== ENCOUNTER 2021-09-30 07:59 | Day surgery (SDC) | payer MEDICAID ==
--- NOTE | 2021-09-29 12:44 | PCM.PREANE ---
Preanesthetic Assessment - Procedure Proposed Procedure: Excision of sinus tract and skin on lower abdomin - Anesthesia/Transfusion/Family Hx Anesthesia History: Prior Anesthesia Without Reaction Family History of Anesthesia Reaction: No Transfusion History: No Prior Transfusion(s) Intubation History: Unknown - Review of Systems General: No Symptoms (Morbid obesity: on phenteramine: last dose instructed to be Tuesday09/23/2021), Fatigue (since bacterial pneumonia in July 2020.) Pulmonary: No Symptoms (smoker: 1ppd times 24 years/Vape: 10-15 hits per week. ETOH: weekends (regularly) Marijuana: none since 2018/phenteramine: last dose 09/09/2021), Wheezing (when laying flat), Cough (chronic-productibe clear phegm.) Cardiovascular: No Symptoms (HTN), Dyspnea on Exertion Gastrointestinal: No Symptoms (GERD: occasionally) Neurological: No Symptoms (left hip/leg pain 5/10, motion sickness, lower back pain 2-3/10), Numbness (Lower back pain with bilateral sciatica) Other: Reports: None, Sinus Problem (seasonal allergies), Depression, Anxiety - Physical Assessment NPO Status Date: 09/29/21 NPO Status Time: 17:00 Vital Signs: HR: 82 Sat: 96% Temp: 98 B/P: 150/98 Resp: 20 Height: 1.8 m Weight: 156 kg ASA Class: 3 Mental Status: Alert & Oriented x3 Airway Class: Mallampati = 2 Dentition: Reports: Normal Dentition, Missing Tooth/Teeth, Caries Thyro-Mental Finger Breadths: 3 Mouth Opening Finger Breadths: 3 ROM/Head Extension: Full Lungs: Clear to Auscultation, Normal Respiratory Effort Cardiovascular: Regular Rate, Regular Rhythm, No Murmurs - Lab Values: All labs from April 2021 reviewed and noted and within acceptable ranges to proceed with scheduled procedure. - Imaging/EKG Impressions: EKG: SR rate=61 - Allergies Allergies/Adverse Reactions: Allergies Allergy/AdvReac Type Severity Reaction Status Date / Time bee venom protein (honey bee) Allergy Bee Verified 09/29/21 15:26 stings, localized swelling and limb numbness - Anesthesia Plan Pre-Op Medication Ordered: None - Acknowledgements Anesthesia Type Planned: MAC Pt an Appropriate Candidate for the Planned Anesthesia: Yes Alternatives and Risks of Anesthesia Discussed w Pt/Guardian: Yes Pt/Guardian Understands and Agrees with Anesthesia Plan: Yes PreAnesthesia Questionnaire Cardiovascular History: Reports: Hypertension Other Cardiovascular History: not on medication Respiratory History: Reports: Bronchitis, Recurrent Musculoskeletal History: Reports: Fracture Psychiatric History: Reports: Anxiety Endocrine/Metabolic History: Reports: Obesity/BMI 30+ - Past Surgical History HEENT Surgical History: Reports: Oral Surgery (dental extractions) Male Surgical History: Reports: Vasectomy - HOME MEDS Home Medications: Home Meds Ibuprofen 200 - 800 mg PO Q4H PRN 08/14/21 [History] amLODIPine Besylate [Amlodipine Besylate] 10 mg PO DAILY 08/14/21 [History] DULoxetine [Cymbalta] 90 mg PO DAILY 09/29/21 [History] Mupirocin Calcium [Bactroban] 1 dose TOP TID PRN 09/29/21 [History] Phentermine HCl 37.5 mg PO DAILY 09/29/21 [History] Sildenafil Citrate [Viagra] 100 mg PO ASDIRECTED PRN 09/29/21 [History] - CURRENT (IN HOUSE) MEDS Current Meds: Current Medications Lactated Ringer's (Ringers, Lactated) 1,000 mls @ 125 mls/hr IV ASDIRECTED DAT Stop: 09/30/21 23:00 Lidocaine/Sodium Bicarbonate (Lidocaine 1%/Sod Bicarbonate In Ns 8.4% 1 Ml Syringe) 0.25 ml IDERM ONETIME PRN PRN Reason: Prior to IV Start Stop: 09/30/21 18:00 Sodium Chloride (Sodium Chloride 0.9% 10 Ml Syringe) 10 ml FLUSH 0900,2100 [facility] Stop: 09/30/21 18:00
[~2021-09-30 07:59] MED LIST: Albuterol 0.083% 2.5 MG/3 ML Neb Soln NEB ONE; Bacitracin Oint 15 GM Tube ONE; Bupivacaine 0.5% 30 ML SDV ONE; HYDROmorphone 0.5 MG/0.5 ML Syringe ONE; Ketamine 500 mg/10 ML MDV ONE; Lactated Ringers 1,000 ML IV SCH; Lactated Ringers 1,000 ML ONE; Lidocaine 1% with EPINEPHrine 1:100,000 20 ML MDV ONE; Lidocaine 1%/Sod Bicarbonate in NS 8.4% 1 ML Syringe IDERM PRN; Metoclopramide 10 MG/2 ML SDV ONE; Midazolam 1 MG/ML 2 ML SDV ONE; Ondansetron 4 MG/2 ML SDV ONE; Propofol 200 MG/20 ML SDV ONE; Sodium Chloride 0.9% 10 ML Syringe FLUSH SCH; Sodium Chloride 0.9% 50 ML SDV ONE; ceFAZolin 1 GM Vial ONE; fentaNYL 100 MCG/2 ML SDV ONE
[2021-09-30] MEDS ORDERED: Scopolamine 1.5 MG Transdermal Patch TRDERM PRN (08:07)
[2021-09-30] MEDS ORDERED: Ondansetron 4 MG/2 ML SDV IVPUSH PRN (08:53)
[2021-09-30] MEDS ORDERED: Albuterol 0.083% 2.5 MG/3 ML Neb Soln NEB PRN (08:53)
[2021-09-30] MEDS ORDERED: HYDROmorphone 0.5 MG/0.5 ML Syringe IVPUSH PRN (08:53)
[2021-09-30] MEDS ORDERED: ePHEDrine 50 MG/ML SDV IVPUSH PRN (08:53)
[2021-09-30] MEDS ORDERED: fentaNYL 100 MCG/2 ML SDV IVPUSH PRN (08:53)
[2021-09-30] MEDS ORDERED: diphenhydrAMINE 50 MG/ML SDV IVPUSH PRN (08:53)
--- NOTE | 2021-09-30 09:35 | PCM.OPNOTE ---
- General Post-Op/Procedure Note Date of Surgery/Procedure: 09/30/21 Operative Procedure(s): Excision of lower abdomen sinus tract Findings: lower abdomen sinus tract and granulation tissue Pre Op Diagnosis: persistent lower abdomen sinus tract Post-Op Diagnosis: same Anesthesia Technique: Local, MAC Primary Surgeon: Bernie Almodovar Anesthesia Provider: Radha Ramirez Pathology: lower abdomen sinus tract Fluid Replacement, Intraop: 700 Output, Urine Amount: 0 EBL in mLs: 5 Complications: none apparent Condition: Good
--- NOTE | 2021-09-30 09:37 | PCM.PRNOTE ---
- Free Text/Narrative Note: Date of Surgery: 09/30/21 Operative Procedure: Excision of lower abdomen sinus tract Pre Op Diagnosis: persistent lower abdomen sinus tract Post-Op Diagnosis: same Anesthesia Technique: Local, MAC Primary Surgeon: Bernie Almodovar MD Anesthesia Provider: Radha Ramirez CRNA Fluid Replacement, Intraop: 700 Output, Urine Amount: 0 EBL in mLs: 5 Findings: lower abdomen sinus tract and granulation tissue Pathology: lower abdomen sinus tract Indication: The patient is a 41-year-old gentleman who presented to the outpatient complete clinic with complaint of a recurrent nodule with a draining sinus tract on the lower abdomen. He reported intermittent infection and pain in the area. He also has a history of local anesthetic being ineffective for analgesia. We discussed excision in the operating room. We discussed risks of bleeding and infection. His written consent was obtained. Description of the procedure: The patient was brought to the operating room and placed in supine position on the operating table he was prepped and draped in standard surgical fashion. He had successful induction of MAC anesthesia. Preoperative antibiotics were administered according to SCIP guidelines. The area of the sinus tract nodule were marked on the patient's left lower abdomen. This area was then anesthetized using a mixture 1% lidocaine with epinephrine and 0.5% bupivacaine. The skin was then excised in elliptical fashion containing the sinus tract openings or visible on the skin. This was carried down through the subcutaneous tissue and incorporating the subcutaneous nodule that was palpable. We did encounter some granulation tissue on the lower aspect of this area. This area was completely excised. The specimen was then sent to pathology. The specimen measured approximately 6 x 7 cm. The cavity was then irrigated and the Bovie used for hemostasis. We then closed the defect using 3-0 Vicryl interrupted sutures in the deep layers to close the space. The skin was then closed in two layers with 3-0 Vicryl and 4-0 Monocryl in the subcutaneous layer. He was awakened and transported to recovery in stable condition. Complications: none apparent Condition: Good Bernie Almodovar MD General surgery
--- NOTE | 2021-09-30 09:48 | PCM48HPAN ---
Post Anesthesia Note - EVALUATION WITHIN 48HRS OF ANESTHETIC Vital Signs in Normal Range: Yes Patient Participated in Evaluation: Yes Respiratory Function Stable: Yes Airway Patent: Yes Cardiovascular Function Stable: Yes Hydration Status Stable: Yes Pain Control Satisfactory: Yes Nausea and Vomiting Control Satisfactory: Yes Mental Status Recovered: Yes Vital Signs: Last Vital Signs Temp 36.7 C 09/30/21 07:30 Pulse 82 09/30/21 07:30 Resp 20 09/30/21 07:30 BP 150/98 H 09/30/21 07:30 Pulse Ox 96 09/30/21 07:30
[2021-09-30 15:27] VITALS: BP 133/93; PULSE 75
== END 2021-09-30 10:28 | disposition home or self-care (01) ==
LOC: JD.SDS 07:59
PROVIDERS: ATTEND Surgery
DX: K63.89 Other specified diseases of intestine (principal); L02.211 Cutaneous abscess of abdominal wall; L90.5 Scar conditions and fibrosis of skin; E66.01 Morbid (severe) obesity due to excess calories; I10 Essential (primary) hypertension; Z79.899 Other long term (current) drug therapy; Z91.030 Bee allergy status; Z98.890 Other specified postprocedural states
CPT/HCPCS: 51500; A9270; J0690; J1170; J2250; J2405; J2704; J2765; J3010; J3490; J7120; 00400

== ENCOUNTER 2022-08-23 05:52 | Day surgery (SDC) | payer MEDICAID ==
[~2022-08-23 05:52] MED LIST changes: -Albuterol 0.083% 2.5 MG/3 ML Neb Soln NEB ONE; -Bacitracin Oint 15 GM Tube ONE; -Bupivacaine 0.5% 30 ML SDV ONE; -HYDROmorphone 0.5 MG/0.5 ML Syringe ONE; -Ketamine 500 mg/10 ML MDV ONE; -Lactated Ringers 1,000 ML ONE; -Lidocaine 1% with EPINEPHrine 1:100,000 20 ML MDV ONE; -Metoclopramide 10 MG/2 ML SDV ONE; -Midazolam 1 MG/ML 2 ML SDV ONE; -Ondansetron 4 MG/2 ML SDV ONE; -Propofol 200 MG/20 ML SDV ONE; +Sodium Chloride 0.9% 10 ML Syringe FLUSH PRN; -Sodium Chloride 0.9% 50 ML SDV ONE; -ceFAZolin 1 GM Vial ONE; -fentaNYL 100 MCG/2 ML SDV ONE
[2022-08-23] MEDS ORDERED: Propofol 200 MG/20 ML SDV ONE (06:10)
[2022-08-23] MEDS ORDERED: ceFAZolin 2 GM Vial ONE ×2 (06:10→06:46)
[2022-08-23] MEDS ORDERED: Lidocaine 1% 4 ML ONE (06:10)
[2022-08-23] MEDS ORDERED: fentaNYL 100 MCG/2 ML SDV ONE (06:11)
[2022-08-23] MEDS ORDERED: Midazolam 1 MG/ML 2 ML SDV ONE ×2 (06:11→07:30)
[2022-08-23] MEDS ORDERED: ePHEDrine 50 MG/ML SDV ONE (07:06)
[2022-08-23] MEDS ORDERED: fentaNYL 100 MCG/2 ML SDV IVPUSH PRN (07:28)
[2022-08-23] MEDS ORDERED: Ondansetron 4 MG/2 ML SDV IVPUSH PRN (07:28)
[2022-08-23] MEDS ORDERED: diphenhydrAMINE 50 MG/ML SDV IVPUSH PRN (07:28)
[2022-08-23] MEDS ORDERED: Lactated Ringers 1,000 ML ONE (07:35)
[2022-08-23] MEDS: Tranexamic Acid 1,000 MG/10 ML Vial ONE ×2 (07:52→08:16)
[2022-08-23] MEDS: Morphine 8 MG, EPINEPHrine 0.3 MG, Cefuroxime 750 MG, Ketorolac 30 MG, Sodium Chloride ... PRN ×10 (07:53→08:16)
[2022-08-23] MEDS: Vancomycin 1 GM SDV ONE ×2 (07:53→08:16)
[2022-08-23] MEDS ORDERED: Ketorolac 30 MG/ML SDV ONE (08:36)
[2022-08-23] MEDS ORDERED: Ondansetron 4 MG/2 ML SDV ONE (08:36)
[2022-08-23] MEDS ORDERED: traMADol 50 MG Tab PO ONE (09:07)
[2022-08-23] MEDS ORDERED: Cyclobenzaprine 10 MG Tab PO ONE (09:08)
[2022-08-23 13:38] VITALS: BP 138/78; PULSE 75
== END 2022-08-23 13:07 | disposition home or self-care (01) ==
LOC: JD.SDS 05:52
PROVIDERS: ATTEND Orthopaedic Surgery
DX: M16.12 Unilateral primary osteoarthritis, left hip (principal); F17.210 Nicotine dependence, cigarettes, uncomplicated; I10 Essential (primary) hypertension; K21.9 Gastro-esophageal reflux disease without esophagitis; F41.9 Anxiety disorder, unspecified; E11.9 Type 2 diabetes mellitus without complications; E66.9 Obesity, unspecified; Z68.30 Body mass index [BMI] 30.0-30.9, adult; Z91.030 Bee allergy status; Z79.899 Other long term (current) drug therapy; Z79.84 Long term (current) use of oral hypoglycemic drugs; Z79.01 Long term (current) use of anticoagulants
CPT/HCPCS: 0055T; 27130; 36415; 73501; 82947; 86850; 86900; 86901; 97110; 97161; C1713; C1776; J0171; J0690; J0697; J1885; J2250; J2270; J2405; J2704; J3010; J3370; J7120; 01214